=== PATIENT | male | born 1960 | race Caucasian/White ===

== ENCOUNTER 2020-07-26 21:32 | Emergency (ER) | payer BC, OTHER ==
[2020-07-26] MEDS ORDERED: Sodium Chloride 0.9% 10 ML SDV IV PRN (21:42)
[2020-07-26] MEDS ORDERED: Sodium Chloride 0.9% 2.5 ML Syringe FLUSH PRN (21:42)
[2020-07-26] MEDS ORDERED: Sodium Chloride 0.9% 10 ML Syringe FLUSH PRN (21:42)
--- NOTE | 2020-07-26 22:02 | CT ---
INDICATION: Stroke. Altered mental status. TECHNIQUE: Noncontrast images foramen magnum to vertex. FINDINGS: No hemorrhage in the brain. No extra-axial fluid. 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 No significant mass, mass effect or midline shift. Sulci and ventricles appear normal. Calvarium is intact. Mastoid air cells, middle ears and visualized paranasal sinuses are well aerated. Normal appearance of the orbits and globes. IMPRESSION: No acute intracranial finding. Please note that all CT scans at this facility use dose modulation, iterative reconstruction, and/or weight-based dosing when appropriate to reduce radiation dose to as low as reasonably achievable. Dictated by Jonn Tavarez MD @ Jul 26 2020 10:00PM Signed by Dr. Jonn Tavarez @ Jul 26 2020 10:01PM
[2020-07-26] MEDS ORDERED: Iopamidol 755 Mg/ML 100 ML Bottle IVPUSH STA (22:18)
[2020-07-26] MEDS ORDERED: Ondansetron 4 MG/2 ML SDV IVPUSH ONE (22:27)
[2020-07-26] MEDS: Sodium Chloride 0.9% 500 ML IV SCH ×2 (22:35→23:39)
[2020-07-26 22:47] LABS: BLOOD UREA NITROGEN,BUN 20 mg/dL (7.0-18.0); CARBON DIOXIDE,CO2 22.9 mmol/L (21.0-32.0); CHLORIDE,CL 102 mmol/L (98-107); GLUCOSE RANDOM 172 mg/dL (74-106); POTASSIUM,K 3.7 mmol/L (3.5-5.1); SODIUM,NA 137 mmol/L (136-148)
[2020-07-26] MEDS ORDERED: Sodium Chloride 0.9% 500 ML IV SCH (23:00)
[2020-07-26] MEDS ORDERED: Meclizine 25 MG Tab PO ONE (23:00)
--- NOTE | 2020-07-26 23:01 | CT ---
DATE: 07/26/2020 CLINICAL HISTORY: Patient with focal neurological deficits. TECHNIQUE: Standard helical CT image acquisition through the head and neck was performed after intravenous contrast bolus enhancement. Multiplanar reconstructed images were performed and interpreted. COMPARISON: CT same day. FINDINGS: The origins of the great vessels from the aortic arch are patent. The origin of the right vertebral artery is patent. The origin of the left vertebral artery is patent. The common carotid arteries are patent There is no stenosis at the origin of the right internal carotid artery. There is no stenosis at the origin of the left internal carotid artery. The rest of the cervical segments of the internal carotid arteries are patent up to their intracranial segments. The intracranial segments of the internal carotid arteries are patent. The left vertebral artery is dominant. The cervical segments of the vertebral arteries are patent. The intracranial segments of the vertebral arteries are patent. The middle cerebral arteries are normal without aneurysm or proximal occlusion identified. The anterior cerebral arteries are normal without aneurysm or proximal occlusion identified. The anterior communicating artery is well visualized and appears normal. The basilar artery is normal without aneurysm or occlusion. The posterior cerebral arteries are normal without aneurysm or proximal occlusion. The visualized lung apices are unremarkable The thyroid gland is unremarkable. The soft tissues of the neck are unremarkable. There are degenerative changes in the cervical spine. IMPRESSION: Normal CT angiogram of the head and neck. Please note that all CT scans at this facility use dose modulation, iterative reconstruction, and/or weight-based dosing when appropriate to reduce radiation dose to as low as reasonably achievable. Dictated by Aura Brooks MD @ Jul 27 2020 1:55AM Signed by Dr. Aura Brooks @ Jul 27 2020 1:55AM
--- NOTE | 2020-07-27 03:54 | EDM.PDOC ---
ED HPI GENERAL MEDICAL PROBLEM - General Chief Complaint: Neuro Symptoms/Deficits Stated Complaint: dizzy Time Seen by Provider: 07/26/20 21:35 - History of Present Illness INITIAL COMMENTS - FREE TEXT/NARRATIVE: CHIEF COMPLAINT(S): Dizziness HISTORY OF PRESENT ILLNESS: This is a 60-year-old man with a past medical history of atrial fibrillation who comes to the emergency department with a chief complaint of dizziness. The patient states that approximately 5 to 6 hours prior to arrival he developed dizziness which he describes as constant and spinning. He states that this dizziness is not exacerbated by turning his head or movement. He states that he did have an episode of vomiting and has a headache located in the back of his head. He describes a headache as achy and not the worst of his life. He denies any aggravating or relieving symptoms. He rates his headache as a 5 out of 10. He denies any chest discomfort or shortness of breath. He states that he is on flecainide and diltiazem for atrial fibrillation but that he is not on any anticoagulation as he stopped 12 days ago per recommendations of his mud analysis operator. REVIEW OF SYSTEMS: Constitutional: Denies fever, chills. Eyes: Denies eye pain Ears, Nose, Mouth, & Throat: Denies earache, sore throat, runny nose Cardiovascular: Denies chest pain Respiratory: Denies shortness of breath Gastrointestinal: Positive for nausea. Denies vomiting, diarrhea, hematochezia Genitourinary: Denies hematuria Skin:Denies a rash Neurological: Positive for headache, dizziness. Denies numbness, tingling, weakness Psychiatric: Denies depression PAST MEDICAL HISTORY: As per history of present illness and as reviewed below otherwise noncontributory. SURGICAL HISTORY: As per history of present illness and as reviewed below otherwise noncontributory. SOCIAL HISTORY: As per history of present illness and as reviewed below otherwise noncontributory. FAMILY HISTORY: As per history of present illness and as reviewed below otherwise noncontributory. EXAMINATION OF ORGAN SYSTEMS/BODY AREAS: Constitutional: Blood pressure was 130/93, heart rate 62, respiratory rate 18 with an oxygen saturation leg 9% on room air. Temperature 35.6 General: Is a middle-aged gentleman who appears in distress who is leaning forward on his chair. Psychiatric: Appropriate mood and affect. Eyes: No scleral icterus or conjunctival erythema pupils are equal round and reactive to light. Extraocular movements intact. No vertical or horizontal nystagmus. ENMT: Moist mucous membranes. No pharyngeal erythema tongue protrudes midline. Cardiovascular: Regular, rate, and rhythym. No gallops, murmurs, or rubs. Bilateral upper extremity pulses symmetric and intact. No peripheral edema. No JVD. Respiratory: Lungs clear to auscultation bilaterally. No wheezes, rales, or rhonchi. Gastrointestinal: Soft, non-tender, non-distended. Normoactive bowel sounds Genitourinary: No suprapubic tenderness Musculoskeletal: Normal range of motion. Skin: No lesions or abrasions. Neurological: AOx4. CN grossly intact. Stregth 5/5 in bilateral upper and lower extremity. Sensation is intact bilaterally in upper and lower extremity. Gait appears normal. Finger to nose, heel to garnica, rapid alternating movements intact. MEDICAL DECISION MAKING AND COURSE IN THE ED WITH INTERPRETATION/REVIEW OF DIAGNOSTIC STUDIES: This is a 60-year-old male with a past medical history of atrial fibrillation not on anticoagulation who comes to the emergency department with an acute onset dizziness approximately 5 to 6 hours prior to arrival. The patient's NIH score was 0 however given his headache and constant dizziness which is not exacerbated by movement I am concerned about the possibility of intracranial hemorrhage versus stroke. Therefore we initiated stroke protocol and we will obtain CT head without contrast and CTA of the head and neck. Will obtain labs including CBC, CMP, troponin, EKG, and coronavirus. Laboratory: CBC is unremarkable. CMP is unremarkable. Troponin x1 is negative. Coronavirus is negative. Coags are within normal limits. Twelve-lead EKG interpreted by myself. Normal sinus rhythm at a rate of 58 beats per minute. Normal axis. SC interval is 170 ms. QRS duration is [address] segments are normal without elevations or depressions. No Q waves present. Hypertrophy not noted. No prior EKGs in the system Interpretation: Sinus bradycardia The radiological images were viewed by myself along with reading the report from the radiologist. CT head without contrast does not reveal any acute intracranial hemorrhage or abnormality. After labs and imaging the patient stated that he was still experiencing dizziness. Therefore I provided the patient with a's normal saline bolus administered the patient meclizine and the cause of this is benign vertigo. We are still pending CTA of the head and the neck at this time. The patient was bradycardic on the monitor however normotensive. The radiological images were viewed by myself along with reading the report from the radiologist. CTA of the head and neck does not reveal any abnormality. On reevaluation, the patient stated that he continued to remain dizzy. Therefore I discussed with him that I cannot explain his dizziness however I would like to contact a neurologist to discuss MRI. We do not have a more MRI capable at this location. I contacted neurologist at Dr. Matthew at [facility] who stated that at this time given the patient has isolated vertigo without any focal deficit he does not believe that it is secondary to intracranial pathology as the patient should have more signs on examination. Therefore at this time the patient will not be transferred. I did have a discussion with the patient regarding his medications that he is on for atrial fibrillation as this possibly being the cause. We did obtain orthostatics at this time it were found to be normal. I contacted the patient's mud analysis operator Dr. Gomez at [facility] in [place] who does not believe this is secondary to his cardiac medications. Therefore after a thorough discussion with the patient we did observe him in the emergency department to evaluate if his vertigo had improved. After period of observation the patient's vertigo had resolved and at this time I did discuss with patient that he be stable for discharge. I discussed that he should follow-up with neurologist and his primary care doctor in [place]. He was amenable discharge at this time and had no further questions. DISPOSITION: The patient was discharged home in stable condition. The patient will follow up with PCP and neurology in [place] CONDITION: Fair PROCEDURES: None FINAL IMPRESSION(S)/DIAGNOSES: 1. Acute vertigo secondary to unknown etiology 2. Asymptomatic bradycardia Nathaniel Jasmine M.D. - Related Data Allergies Allergy/AdvReac Type Severity Reaction Status Date / Time No Known Allergies Allergy Verified 07/26/20 22:38 Home Meds: Home Meds Diltiazem [Cardizem CD] 120 mg PO DAILY 07/26/20 [History] Flecainide [Tambocor] 100 mg PO Q12H 07/26/20 [History] Past Medical History HEENT History: Reports: None Cardiovascular History: Reports: Afib Other Cardiovascular History: cardioversion x3 Respiratory History: Reports: None Genitourinary History: Reports: None Musculoskeletal History: Reports: None Neurological History: Reports: None Psychiatric History: Reports: None Endocrine/Metabolic History: Reports: None Hematologic History: Reports: None Dermatologic History: Reports: None - Infectious Disease History Infectious Disease History: Reports: Hepatitis C - Past Surgical History Cardiovascular Surgical History: Reports: Cardiac Ablation GI Surgical History: Reports: Appendectomy, Cholecystectomy Social & Family History - Family History Family Medical History: Noncontributory - Recreational Drug Use Recreational Drug Use: No ED ROS GENERAL - Review of Systems Review Of Systems: See Below ED EXAM, GENERAL - Physical Exam Exam: See Below Course - Vital Signs Last Recorded V/S: Last Vital Signs Temp 35.4 C L 07/27/20 00:53 Pulse 63 07/27/20 00:53 Resp 18 07/27/20 00:53 BP 159/89 H 07/27/20 00:53 Pulse Ox 97 07/27/20 00:53 Orthostatic Blood Pressure [ 151/94 Standing] Orthostatic Blood Pressure [ 154/91 Sitting] Orthostatic Blood Pressure [ 139/85 Supine] - Orders/Labs/Meds Orders: Active Orders 24 hr Category Date Time Status Peripheral IV Insertion Adult [OM.PC] Stat Oth 07/26/20 21:43 Ordered Peripheral IV Insertion Adult [OM.PC] Stat Oth 07/26/20 21:43 Ordered Resuscitation Status Stat Resus Stat 07/26/20 21:42 Ordered Labs: Laboratory Tests 07/26/20 07/26/20 07/26/20 Range/Units 21:50 21:50 21:50 WBC 7.04 (4.0-11.0) K/uL RBC 4.95 (4.50-5.90) M/uL Hgb 14.7 (13.0-17.0) g/dL Hct 43.0 (38.0-50.0) % MCV 86.9 (80.0-98.0) fL MCH 29.7 (27.0-32.0) pg MCHC 34.2 (31.0-37.0) g/dL RDW Std Deviation 41.1 (28.0-62.0) fl RDW Coeff of Colleen 13 (11.0-15.0) % Plt Count 178 (150-400) K/uL MPV 9.90 (7.40-12.00) fL Neut % (Auto) 79.6 (48.0-80.0) % Lymph % (Auto) 13.6 L (16.0-40.0) % Stewart % (Auto) 6.1 (0.0-15.0) % Eos % (Auto) 0.3 (0.0-7.0) % Baso % (Auto) 0.4 (0.0-1.5) % Neut # (Auto) 5.6 (1.4-5.7) K/uL Lymph # (Auto) 1.0 (0.6-2.4) K/uL Stewart # (Auto) 0.4 (0.0-0.8) K/uL Eos # (Auto) 0.0 (0.0-0.7) K/uL Baso # (Auto) 0.0 (0.0-0.1) K/uL Nucleated RBC % 0.0 /100WBC Nucleated RBCs # 0 K/uL INR 1.15 APTT 26.2 (18.6-31.3) SEC Sodium 137 (136-148) mmol/L Potassium 3.7 (3.5-5.1) mmol/L Chloride 102 (98-107) mmol/L Carbon Dioxide 22.9 (21.0-32.0) mmol/L BUN 20 H (7.0-18.0) mg/dL Creatinine 1.0 (0.8-1.3) mg/dL Est Cr Clr Drug Dosing 81.11 mL/min Estimated GFR (MDRD) > 60.0 ml/min Glucose 172 H (74-106) mg/dL Calcium 8.5 (8.5-10.1) mg/dL Total Bilirubin 0.4 (0.2-1.0) mg/dL AST 20 (15-37) IU/L ALT 38 (14-63) IU/L Alkaline Phosphatase 62 (46-116) U/L Troponin I < 0.050 (0.000-0.056) ng/mL Total Protein 7.3 (6.4-8.2) g/dL Albumin 4.2 (3.4-5.0) g/dL Globulin 3.1 (2.6-4.0) g/dL Albumin/Globulin Ratio 1.4 (0.9-1.6) SARS-CoV-2 RNA (REGULO) (NEGATIVE) Blood Type Antibody Screen 07/26/20 07/26/20 Range/Units 21:50 22:52 WBC (4.0-11.0) K/uL RBC (4.50-5.90) M/uL Hgb (13.0-17.0) g/dL Hct (38.0-50.0) % MCV (80.0-98.0) fL MCH (27.0-32.0) pg MCHC (31.0-37.0) g/dL RDW Std Deviation (28.0-62.0) fl RDW Coeff of Colleen (11.0-15.0) % Plt Count (150-400) K/uL MPV (7.40-12.00) fL Neut % (Auto) (48.0-80.0) % Lymph % (Auto) (16.0-40.0) % Stewart % (Auto) (0.0-15.0) % Eos % (Auto) (0.0-7.0) % Baso % (Auto) (0.0-1.5) % Neut # (Auto) (1.4-5.7) K/uL Lymph # (Auto) (0.6-2.4) K/uL Stewart # (Auto) (0.0-0.8) K/uL Eos # (Auto) (0.0-0.7) K/uL Baso # (Auto) (0.0-0.1) K/uL Nucleated RBC % /100WBC Nucleated RBCs # K/uL INR APTT (18.6-31.3) SEC Sodium (136-148) mmol/L Potassium (3.5-5.1) mmol/L Chloride (98-107) mmol/L Carbon Dioxide (21.0-32.0) mmol/L BUN (7.0-18.0) mg/dL Creatinine (0.8-1.3) mg/dL Est Cr Clr Drug Dosing mL/min Estimated GFR (MDRD) ml/min Glucose (74-106) mg/dL Calcium (8.5-10.1) mg/dL Total Bilirubin (0.2-1.0) mg/dL AST (15-37) IU/L ALT (14-63) IU/L Alkaline Phosphatase (46-116) U/L Troponin I (0.000-0.056) ng/mL Total Protein (6.4-8.2) g/dL Albumin (3.4-5.0) g/dL Globulin (2.6-4.0) g/dL Albumin/Globulin Ratio (0.9-1.6) SARS-CoV-2 RNA (REGULO) NEGATIVE (NEGATIVE) Blood Type A NEGATIVE Antibody Screen NEGATIVE Meds: Medications Discontinued Medications Generic Name Dose Route Start Last Admin Trade Name Freq PRN Reason Stop Dose Admin Sodium Chloride 500 mls @ 499 mls/hr 07/26/20 21:45 07/26/20 23:39 Normal Saline IV 499 mls/hr BOLUS ROMI Administration Sodium Chloride 500 mls @ 499 mls/hr 07/26/20 23:00 Normal Saline IV .BOLUS ROMI Iopamidol 100 ml 07/26/20 22:18 07/26/20 22:19 Isovue-370 (76%) IVPUSH 07/26/20 22:19 100 ml ONETIME STA Administration Meclizine HCl 25 mg 07/26/20 23:00 07/26/20 23:40 Antivert PO 07/26/20 23:01 25 mg ONETIME ONE Administration Ondansetron HCl 4 mg 07/26/20 22:27 07/26/20 22:36 Zofran IVPUSH 07/26/20 22:28 4 mg ONETIME ONE Administration Sodium Chloride 10 ml 07/26/20 21:42 Saline Flush FLUSH ASDIRECTED PRN Keep Vein Open Sodium Chloride 2.5 ml 07/26/20 21:42 Saline Flush FLUSH ASDIRECTED PRN Keep Vein Open Sodium Chloride 10 ml 07/26/20 21:42 Normal Saline IV ASDIRECTED PRN IV Use Departure - Departure Time of Disposition: 03:54 Disposition: Home, Self-Care 01 Condition: Fair Clinical Impression: Vertigo - Discharge Information *PRESCRIPTION DRUG MONITORING PROGRAM REVIEWED*: No *COPY OF PRESCRIPTION DRUG MONITORING REPORT IN PATIENT ORQUIDEA: No Instructions: Dizziness, [id number] Referrals: PCP,Not In Area [Primary Care Provider] - Forms: ED Department Discharge Additional Instructions: The patient is informed of any results of their evaluation and diagnostic workup and all questions are answered. They are given discharge instructions and return precautions. The patient is stable for discharge. The patient states they understand and agree with the plan and that they will return if their symptoms get worse or if they have any new concerns. The following information is given to patients seen in the emergency department who are being discharged to home. This information is to outline your options for follow-up care. We provide all patients seen in our emergency department with a follow-up referral. The need for follow-up, as well as the timing and circumstances, are variable depending upon the specifics of your emergency department visit. If you don't have a primary care physician on staff, we will provide you with a referral. We always advise you to contact your personal physician following an emergency department visit to inform them of the circumstance of the visit and for follow-up with them and/or the need for any referrals to a consulting specialist. The emergency department will also refer you to a specialist when appropriate. This referral assures that you have the opportunity for follow-up care with a specialist. All of these measure are taken in an effort to provide you with optimal care, which includes your follow-up. Under all circumstances we always encourage you to contact your private physician who remains a resource for coordinating your care. When calling for follow-up care, please make the office aware that this follow-up is from your recent emergency room visit. If for any reason you are refused follow-up, please contact the [facility] Emergency Department at and asked to speak to the emergency department charge nurse. [facility] [address] [place] [id number] [facility] [address] [place] [id number] Sepsis Event Note (ED) - Evaluation Sepsis Screening Result: No Definite Risk - Focused Exam Vital Signs: Vital Signs Temp Pulse Resp BP Pulse Ox Pulse Ox 07/27/20 00:53 35.4 C L 63 18 159/89 H 97 07/26/20 23:42 50 L 18 146/91 H 98 07/26/20 21:45 99 07/26/20 21:44 35.6 C L 57 L 18 151/108 H 98 07/26/20 21:43 35.6 C L 62 18 130/93 H 99 - My Orders Last 24 Hours: My Active Orders 07/26/20 21:42 Resuscitation Status Stat 07/26/20 21:43 Peripheral IV Insertion Adult [OM.PC] Stat Peripheral IV Insertion Adult [OM.PC] Stat - Assessment/Plan Last 24 Hours: My Active Orders 07/26/20 21:42 Resuscitation Status Stat 07/26/20 21:43 Peripheral IV Insertion Adult [OM.PC] Stat Peripheral IV Insertion Adult [OM.PC] Stat
== END 2020-07-27 04:26 | disposition home or self-care (01) ==
LOC: MW.ED 21:32
DX: R42 Dizziness and giddiness (principal); R00.1 Bradycardia, unspecified; I48.91 Unspecified atrial fibrillation; Z79.01 Long term (current) use of anticoagulants; Z20.828 Contact with and (suspected) exposure to other viral communicable diseases
CPT/HCPCS: 36415; 70450; 70496; 70498; 80053; 84484; 85025; 85610; 85730; 86850; 86900; 86901; 87635; 93005; 96361; 96374; 99284; A9270; J2405; J7040; Q9967; 93010; 99283; U0002